=== PATIENT | male | born 1950 | race African-American/Black ===

== ENCOUNTER 2018-11-24 12:52 | Inpatient (IN) | payer OTHER, MEDICAID ==
[~2018-11-24] VITALS: Ht 182.9 cm; Wt 84.8 kg
[~2018-11-24 12:52] MED LIST: DIAZ10TA PO; FURO20TA4 PO; HYDR-3606 PO; LISI10TA5 PO; SIMV20TA2 PO; SITA100T11 PO; TAMS-11 PO; [UNRECOGNIZED DRUG - OTHER] PO
[2018-11-24 13:07] VITALS: BP_SYST 126
--- NOTE | 2018-11-24 13:07 | NUR ---
Patient triaged and placed in ER bed 3. VSS and patient appears in no acute distress at this time. MD notified of need for ER evaluation.
--- NOTE | 2018-11-24 13:18 | NUR ---
Patient comes from home in personal vehicle, AOx4, verbal and ambulatory. Patient has complaint of Generalized weakness, dizziness, cough, body aches for a few days. Patient connected to continuous monitoring. Patient alert and responding appropriately, no signs of distress noted. No other complaint or injury at this time.
--- NOTE | 2018-11-24 13:20 | NUR ---
DR CARLTON at bedside for ER evaluation
[2018-11-24 14:08] LABS: BASOPHILS # (AUTO) 0.1 K/uL (0.0-0.2); BASOPHILS % (AUTO) 0.7 % (0.0-2.0); EOSINOPHILS # (AUTO) 0.3 K/uL (0.0-0.4); EOSINOPHILS % (AUTO) 3.9 % (0.0-4.0); HEMATOCRIT 39.9 % (36-54); HEMOGLOBIN 12.5 g/dL (14.0-18.0); LYMPHOCYTES # (AUTO) 3.5 K/uL (1.0-5.5); LYMPHOCYTES % (AUTO) 40.9 % (20.5-51.5); MEAN CORPUSCULAR HEMOGLOBIN 21 pg (27-31); MEAN CORPUSCULAR HGB CONC 31 % (32-36); MEAN CORPUSCULAR VOLUME 66 fL (79.0-98.0); MONOCYTES # (AUTO) 0.2 K/uL (0.0-1.0); MONOCYTES % (AUTO) 2.8 % (1.7-9.3); NEUTROPHILS # (AUTO) 4.5 K/uL (1.8-7.7); NEUTROPHILS % (AUTO) 51.7 % (40.0-70.0); PLATELET COUNT (AUTO) 242 K/uL (130-430); RED BLOOD CELL COUNT(AUTO) 6.09 MIL/uL (4.2-6.2); RED CELL DISTRIBUTION WIDTH 18.9 % (9.0-15.0); WHITE BLOOD COUNT (AUTO) 8.6 K/uL (4.8-10.8)
[2018-11-24 14:21] LABS: ANION GAP 6 (5-15); CHLORIDE 105 mmol/L (98-107); CREATININE 0.96 mg/dL (0.55-1.30); GLUCOSE 103 mg/dL (70-99); POTASSIUM 4.9 mmol/L (3.5-5.1); SODIUM SERUM 139 mmol/L (136-145); UREA NITROGEN, BLOOD 15 mg/dL (8-21)
[2018-11-24 14:31] LABS: ALANINE AMINOTRANSFERASE 21 U/L (12-78); ALBUMIN 2.9 g/dL (3.4-4.8); ASPARTATE AMINOTRANSFERASE 16 U/L (10-37); GFR AFRICAN AMERICAN 100 mL/min (>90); TOTAL BILIRUBIN 0.4 mg/dL (0.0-1.0)
[2018-11-24 14:33] LABS: CALCIUM 12.6 mg/dL (8.4-11.0)
[2018-11-24] MEDS ORDERED: NACL 0.9% 1,000 ML IV ONE (14:45)
--- NOTE | 2018-11-24 15:00 | NUR ---
Patient resting in bed, family at bedside, no signs of distress noted, will continue to monitor.
[2018-11-24 16:05] LABS: BILIRUBIN,URINE NEGATIVE (NEGATIVE); BLOOD, URINE NEGATIVE (NEGATIVE); CLARITY/URINE CLEAR (CLEAR); COLOR,URINE YELLOW (YELLOW); GLUCOSE,URINE NEGATIVE (NEGATIVE); KETONES,URINE NEGATIVE (NEGATIVE); LEUKOCYTE ESTERASE ,URINE NEGATIVE (NEGATIVE); NITRITE, URINE NEGATIVE (NEGATIVE); PH,URINE 6.5 (5.0-8.0); PROTEIN URINE NEGATIVE (NEGATIVE)
--- NOTE | 2018-11-24 16:30 | NUR ---
IVF infusing with no s/s of infiltration at this time. Will cont to monitor
--- NOTE | 2018-11-24 17:20 | NUR ---
Patient resting in bed with daughter at bedside, no signs of distress noted, will continue to monitor.
[2018-11-24] MEDS: NACL 0.9% 1,000 ML IV SCH (17:23)
--- NOTE | 2018-11-24 18:26 | NUR ---
ADMIT NOTE Received pt from ER to the floor with a diagnosis of HYPERCALCEMIA. Admission process initiated. patient oriented to pain management, safety and call light-teach back done.
--- NOTE | 2018-11-24 18:35 | NUR ---
Patient admitted to care of DR Dahl. Admitted to [facility] unit. Placed in [facility] Bed 107B, patient tolerated well with minimal discomfort. Belongings list completed. Summary report printed. Bedside SBAR report given and plan of care endorsed to [facility] RN.
[2018-11-24 18:46] VITALS: BP_SYST 151
--- NOTE | 2018-11-24 19:10 | NUR ---
Opening Note Patient and bedside report received from day shift nurse. Patient is AAO x 4 with no s/s of acute distress. , Norma is at bedside. Plan of care discussed and is agreeable. Educated and encouraged patient to use call light for any needs, especially with increased risk for falls. Safety and fall precautions in place. Call light with patient. Urinal at bedside. Bed alarm on. Will continue to monitor.
[2018-11-24 20:00] VITALS: BP_SYST 135
--- NOTE | 2018-11-24 22:00 | NUR ---
EMPTIED URINAL Emptied 850 yellow urine from patient's urinal. Tolerated well. No s/s of acute distress, denies any pain or discomfort at this time. Call light with patient. Will monitor.
[2018-11-25] VITALS: BP_SYST 119
--- NOTE | 2018-11-25 00:31 | NUR ---
CONSULT REASON FOR CONSULT: HYPERCALCEMIA PERSON I SPOKE WITH: MONICA CONSULTING PHYSICIAN: DR. WALTON (DR. COWAN MACHINE HOOP MAKER) ROPE CUTTER PHONE NUMBER: [phone] ORDERING PHYSICIAN: DR. GALICIA
--- NOTE | 2018-11-25 02:04 | NUR ---
SLEEPING Patient is sleeping at this time. No s/s of acute distress. Safety and fall precautions in place. Call light with patient. Bed alarm on. Will monitor.
--- NOTE | 2018-11-25 04:33 | NUR ---
SLEEPING Patient is sleeping at this time, visible chest rise and fall. No s/s of acute distress. Call light with patient. Bed alarm on. Will monitor.
[2018-11-25] MEDS: NACL 0.9% 1,000 ML IV SCH ×2 (06:01→10:23)
--- NOTE | 2018-11-25 06:15 | NUR ---
CLOSING NOTES All needs met throughout shift. Safety and fall precautions were maintained and remain in place. Denies any pain or discomfort at this time. SBAR bedside report will be given to oncoming day shift nurse.
--- NOTE | 2018-11-25 07:30 | NUR ---
AM NOTES RECEIVED PT IN BED. RESTING COMFORTABLY. A/OX4.DENIES ANY PAIN OR ORTHER DISCOMFORT. RES EVEN AND UNLABORED. SAFETY AND FALL PRECAUTIONS MAINTAINED. NEEDS ATTNEDED. IVF INFUSING WELL. POC DISCUSSED WITH PT. VERBALIZED UNDERSTANDING. WILL CONTINUE TO MONUITOR
[2018-11-25 07:57] VITALS: BP_SYST 131
--- NOTE | 2018-11-25 10:44 | NUR ---
MD VISIT SEEN BY DR MURPHY TALKING TO PT AND PT'S .
[2018-11-25 10:56] VITALS: BP_SYST 136
--- NOTE | 2018-11-25 11:00 | NUR ---
rounds pt stable not in acute distress. denies any pain or discomfort. will continue to monitor
[2018-11-25 11:22] VITALS: BP_SYST 136
--- NOTE | 2018-11-25 11:38 | NUR ---
D/C Patient Patient given medication reconciliation form and D/C instructions. Exit Care provided. Patient verbalized understanding. MD discussed with patient the results and treatment provided. Ambulatory with steady gait for discharge to home. Patient in stable condition, ID band removed. IV catheter removed, intact and dressing applied, no active bleeding.. Patient educated on pain management. All belongings sent with patient.pt left home with prabhakar
--- NOTE | 2018-11-30 13:40 | NUR ---
Discharge Follow Up Phone Call DEMOLITION CRANE OPERATOR phoned patient, . Patient stated that he was improving. He was having difficulty making his appointments. He had been contacted by Teresita stating that he was approved for his CT scan and appointment with Dr Sky (scalp specialist). He wanted to make his own appointments, but could not because of an issue with his birthdate. DEMOLITION CRANE OPERATOR phoned Heide at [facility], . AYLIN Adam returned the call. She relayed that the birthdate issue has been resolved and provided the number for [facility] appointments, . DEMOLITION CRANE OPERATOR spoke with Kayy. Brenda Eola appointments until next week . Made appointment for chest CT with contrast at [place], [address] [address], tomorrow, 12/01/18, 14:00. Arrive 13:45 with fasting 4 hours. Upon request, faxed chest x-ray and chem lab results, f [phone]. Relayed to patient. Patient's phone not reliable; call [phone]. Will continue to attempt to make appointment with Dr Sky [phone] (have called twice and waited on hold). Addendum: 11/30/18 at 1607 by Kayleen Reid LCSW TODD made an appointment with Dr Sky for patient, 12/20/18, 13:45. Patient stated he did not need the address as he has been to the office before. Addendum: 11/30/18 at 1633 by Kayleen Reid DEMOLITION CRANE OPERATOR As patient stated he was a patient of Dr Asya erickson, [facility] tried for an earlier appointment. New appointment at 12/14/18 13:30. Faxed patient's H&P and DC Summary to Lexy Jauregui. office, f [phone]. Notified patient of new appointment date and that he could call learning support teacher for even earlier appointment tomorrow. Patient stated he would keep the 12/14/18 appointment.
== END 2018-11-25 11:40 | disposition home or self-care (01) | DRG 644 ==
LOC: SED 12:52 → STU 15:52
PROVIDERS: ADMIT Internal Medicine Hospice and Palliative Medicine; ATTEND Internal Medicine Hospice and Palliative Medicine
DX: E21.3 Hyperparathyroidism, unspecified (principal); I31.9 Disease of pericardium, unspecified; D64.9 Anemia, unspecified; I10 Essential (primary) hypertension; E11.9 Type 2 diabetes mellitus without complications; J44.9 Chronic obstructive pulmonary disease, unspecified; F17.210 Nicotine dependence, cigarettes, uncomplicated; Z88.0 Allergy status to penicillin; Z79.899 Other long term (current) drug therapy; Z86.73 Personal history of transient ischemic attack (TIA), and cerebral infarction without residual deficits
CPT/HCPCS: 36415; 71045; 80053; 81003; 82962; 84484; 85025; 93005; 96360; 99285; G0378; J7030

== ENCOUNTER 2022-08-24 01:20 | Emergency (ER) | payer OTHER, MEDICAID ==
[~2022-08-24] VITALS: Ht 182.9 cm; Wt 74.8 kg
[2022-08-24 01:20] VITALS: BP_SYST 118
[~2022-08-24 01:20] MED LIST changes: -DIAZ10TA PO; -HYDR-3606 PO; +LISI10TA29 PO; -LISI10TA5 PO; +SIMV-343 PO; -SIMV20TA2 PO; -SITA100T11 PO
--- NOTE | 2022-08-24 01:40 | NUR ---
Received with # 18 gauge angiocath to [facility]. Placed by FIRE on field. Flushed with 10 cc of normal saline. No evidence of infiltration noted. Patient tolerated well.
--- NOTE | 2022-08-24 02:03 | NUR ---
ER Dr. Kelly at bedside examining patient.
--- NOTE | 2022-08-24 02:08 | NUR ---
RAD at bedside for imaging.
[2022-08-24] MEDS ORDERED: MORPHINE 4 MG INJ. 4 MG/ML VIAL IVP ONE (02:15)
[2022-08-24] MEDS ORDERED: NACL 0.9% 1,000 ML IV ONE (02:15)
[2022-08-24] MEDS ORDERED: PRED20TA PO (02:26)
[2022-08-24] MEDS ORDERED: AZIT-93 PO (02:26)
[2022-08-24] MEDS ORDERED: TRAM50TA2 PO (02:26)
--- NOTE | 2022-08-24 03:19 | NUR ---
Patient given written and verbal discharge instructions and verbalizes understanding. ER MD Kelly discussed with patient the results and treatment provided. Patient in stable condition. ID arm band removed. IV catheter removed intact and dressing applied, no active bleeding. Rx sent to preferred pharmacy. Patient educated on pain management and to follow up with PMD. Opportunity for questions provided and answered. Medication side effect fact sheet provided.
[2022-08-24 03:24] VITALS: BP_SYST 119
== END 2022-08-24 03:23 | disposition home or self-care (01) ==
LOC: SED 01:20
DX: J18.9 Pneumonia, unspecified organism (principal); R07.89 Other chest pain; R05.9 Cough, unspecified; J44.9 Chronic obstructive pulmonary disease, unspecified; E11.9 Type 2 diabetes mellitus without complications; I10 Essential (primary) hypertension; Z88.0 Allergy status to penicillin; Z79.899 Other long term (current) drug therapy
CPT/HCPCS: 99283; 96374; 71045; 96361; J2270; J7030; 93005